=== PATIENT | female | born 1975 | race Asian ===

== ENCOUNTER 2018-08-08 18:44 | Emergency (ER) | payer OTHER ==
[2018-08-08 19:27] LABS: BILIRUBIN,URINE NEGATIVE (NEGATIVE); GLUCOSE, URINE (UA) NEGATIVE (NEGATIVE); KETONES,URINE (UA) NEGATIVE (NEGATIVE); LEUKOCYTE ESTERASE, URINE NEGATIVE (NEGATIVE); NITRITE,URINE NEGATIVE (NEGATIVE); OCCULT BLOOD,URINE SMALL (NEGATIVE); PROTEIN,URINE NEGATIVE (NEGATIVE); UROBILINOGEN,URINE 1 (NORMAL) E.U./dL (NORMAL)
[2018-08-08 19:32] LABS: CLARITY,URINE SL. CLOUDY (CLEAR); HCG UR QUAL NEGATIVE
[2018-08-08 19:35] LABS: BACTERIA,URINE Many /HPF (None Seen); SQUAMOUS EPITHELIAL CELL,UR MANY Squamous (<= Few)
--- NOTE | 2018-08-08 19:55 | ED Physician Documentation ---
PD HPI URI - Stated complaint Stated Complaint: FEVER/ SOA/BODY ACHE - Chief complaint Chief Complaint: Resp - History obtained from History obtained from: Patient - History of Present Illness Timing - onset: How many days ago (5) Timing duration: Days (5) Timing details: Abrupt onset, Still present Associated symptoms: Fever, Chills, Nasal congestion, Sore throat, Dry cough (mild) Contributing factors: Travel (from [place] 2 days ago) Similar symptoms before: Diagnosis (with the flu a year ago) Recently seen: Not recently seen Review of Systems Constitutional: reports: Fever, Chills, Myalgias, Fatigue Nose: reports: Congestion. denies: Rhinorrhea / runny nose Throat: reports: Sore throat Respiratory: reports: Cough (mild) GI: reports: Nausea. denies: Vomiting, Diarrhea Skin: denies: Rash, Lesions Neurologic: reports: Headache (mild). 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: Breast implants HEENT: Rhinoplasty - Present Medications Home Medications: Ambulatory Orders Medication Instructions Recorded Confirmed Albuterol Sulf [Ventolin Hfa 1 - 2 puffs INH Q4HR PRN #1 inhaler 08/08/18 Inhaler] Benzonatate [Tessalon Perle] 100 mg PO TID PRN #20 capsule 08/08/18 Dexamethasone [Decadron] 4 mg PO DAILY #5 tablet 08/08/18 - Allergies Allergies/Adverse Reactions: Allergies Allergy/AdvReac Type Severity Reaction Status Date / Time No Known Drug Allergies Allergy Verified 08/08/18 18:59 - Social History Does the pt smoke?: No Smoking Status: Never smoker Does the pt drink ETOH?: Yes ETOH Use: Wine, Beer Does the pt have substance abuse?: No - Immunizations Immunizations are current?: No Immunizations: Other immun not current - POLST Patient has POLST: No PD ED PE NORMAL - Vitals Vital signs reviewed: Yes - General General: Alert and oriented X 3, No acute distress, Well developed/nourished - HEENT HEENT: Ears normal, Moist mucous membranes, Pharynx benign - Neck Neck: Supple, no meningeal sign, Other (mild anterior adenopathy) - Cardiac Cardiac: RRR, No murmur - Respiratory Respiratory: Clear bilaterally - Abdomen Abdomen: Soft, Non tender - Back Back: No CVA TTP - Derm Derm: Normal color, Warm and dry - Neuro Neuro: Alert and oriented X 3, No motor deficit, Normal speech Results - Vitals Vitals: Vital Signs - 24 hr 08/08/18 08/08/18 08/08/18 18:56 20:18 20:20 Temperature 36.5 C 36.9 C Heart Rate 83 87 Respiratory 18 18 Rate Blood Pressure 175/107 H 137/94 H O2 Saturation 100 97 08/08/18 20:29 Temperature Heart Rate 71 Respiratory 18 Rate Blood Pressure O2 Saturation Oxygen O2 Source Room air - Labs Labs: Laboratory Tests 08/08/18 08/08/18 08/08/18 19:00 19:19 19:24 Urine Color YELLOW Urine Clarity SL. CLOUDY Urine pH 6.0 Ur Specific [place] >=1.030 H Urine Protein NEGATIVE Urine Glucose (UA) NEGATIVE Urine Ketones NEGATIVE Urine Occult Blood SMALL H Urine Nitrite NEGATIVE Urine Bilirubin NEGATIVE Urine Urobilinogen 1 (NORMAL) Ur Leukocyte Esterase NEGATIVE Urine RBC 11-25 H Urine WBC 0-3 Ur Squamous Epith Cells MANY Squamous H Urine Bacteria Many H Ur Microscopic Review INDICATED Urine Culture Comments NOT INDICATED Urine HCG, Qual NEGATIVE Influenza A (Rapid) Negative Influenza B (Rapid) Negative Group A Strep Rapid Negative PD MEDICAL DECISION MAKING - ED course Complexity details: reviewed results (seems flu-like but negative test and neg strep and UA. Does not sound like pneumonia. ), considered differential, d/w patient Departure - Departure Disposition: 01 Home, Self Care Clinical Impression: Flu-like symptoms Condition: Stable Record reviewed to determine appropriate education?: Yes Instructions: ED Upper Resp Infec No Abx Tx Follow-Up: [facility] [Provider Group] Prescriptions: Albuterol Sulf [Ventolin Hfa Inhaler] 1 - 2 puffs INH Q4HR PRN #1 inhaler PRN Reason: Shortness Of Air/Wheezing Benzonatate [Tessalon Perle] 100 mg PO TID PRN #20 capsule PRN Reason: Cough Dexamethasone [Decadron] 4 mg PO DAILY #5 tablet Comments: Your symptoms sound flulike (viral illness). Your influenza test itself is negative but there are other viruses act like it. Your strep test is negative. Your urine test is also clear. Your lungs sound clear and does not sound like pneumonia. Presume you will be ill not much longer since you have already been sick for 5 days. We can decrease symptoms with an albuterol inhaler for 4 times a day to help with breathing and cough. Tessalon if needed for cough. Decadron steroid anti-inflammatory will decrease some of the general symptoms. Drink lots of fluids. Tylenol or ibuprofen if needed for fevers and pains. You could have a day or 2 of work if needed for discomfort. Forms: Activity restrictions Discharge Date/Time: 08/08/18 20:56
[2018-08-08] MEDS ORDERED: ALBUTEROL NEB 2.5 MG/3 ML INH STA (20:13)
[2018-08-08] MEDS ORDERED: IBUPROFEN 600 MG TABLET PO STA (20:13)
[2018-08-08] MEDS ORDERED: BENZONATATE 100 MG CAPSULE PO STA (20:14)
[2018-08-08] MEDS ORDERED: DEXAMETHASONE 10 MG/ML VIAL PO STA (20:14)
[2018-08-08 20:18] VITALS: BP 137/94
[2018-08-08] MEDS ORDERED: CHERRY SYRUP 10 ML UDC PO ONE (20:20)
== END 2018-08-08 20:56 | disposition home or self-care (01) ==
LOC: ED 18:44
DX: J11.1 Influenza due to unidentified influenza virus with other respiratory manifestations (principal)
CPT/HCPCS: 81001; 81025; 87070; 87077; 87275; 87276; 87430; 94640; 94664; 99283; A9270; 81003; 87086

== ENCOUNTER 2021-06-10 19:48 | Emergency (ER) | payer OTHER ==
[2021-06-10 19:56] VITALS: BP 157/111
[2021-06-10] MEDS ORDERED: CHERRY SYRUP 10 ML UDC PO ONE (20:13)
[2021-06-10] MEDS ORDERED: HYDROcod/ACET 5/325 Prepack 4 PO STA (20:13)
[2021-06-10] MEDS ORDERED: DEXAMETHASONE 10 MG/ML VIAL PO STA (20:13)
[2021-06-10] MEDS ORDERED: HYDROcod/ACETAM 5/325 MG TABLET PO STA (20:13)
--- NOTE | 2021-06-10 20:15 | ED Physician Documentation ---
History of Present Illness - Stated complaint Stated Complaint: sore throat,fever - Chief complaint Chief Complaint: General - History obtained from History obtained from: Patient - Additonal information Additional information: 45-year-old woman with history of high blood pressure has been sick for 3 days of sore throat and sensation of throat swelling, severe body aches and fevers. No sick contacts. She is not vaccinated against Covid. No runny nose or cough. 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 HEENT: Rhinoplasty - Present Medications Home Medications: Ambulatory Orders Medication Instructions Recorded Confirmed Albuterol Sulf [Ventolin Hfa 1 - 2 puffs INH Q4HR PRN #1 inhaler 08/08/18 Inhaler] Benzonatate [Tessalon Perle] 100 mg PO TID PRN #20 capsule 08/08/18 dexAMETHasone [Decadron] 4 mg PO DAILY #5 tablet 08/08/18 HYDROcod/ACETAM 5/325 [[place] 5/325] 1 - 2 tab PO Q6H PRN #14 tablet 06/10/21 predniSONE [Deltasone] 60 mg PO DAILY 5 Days #15 tablet 06/10/21 - Allergies Allergies/Adverse Reactions: Allergies Allergy/AdvReac Type Severity Reaction Status Date / Time No Known Drug Allergies Allergy Verified 08/08/18 18:59 - Social History Does the pt smoke?: No Smoking Status: Never smoker Does the pt drink ETOH?: Yes Does the pt have substance abuse?: No - Immunizations Immunizations are current?: No Immunizations: Other immun not current - POLST Patient has POLST: No PD ED PE NORMAL - Vitals Vital signs reviewed: Yes - General General: Alert and oriented X 3, No acute distress - HEENT HEENT: Other (Visualized portions of the oropharynx are generally unremarkable) - Neck Neck: Supple, no meningeal sign, No bony TTP - Neuro Neuro: Alert and oriented X 3, Normal speech - Psych Psych: Normal mood, Normal affect Results - Vitals Vitals: Vital Signs - 24 hr 06/10/21 19:53 Temperature 36.5 C Heart Rate 82 Respiratory 18 Rate Blood Pressure 157/111 H O2 Saturation 100 Oxygen O2 Source Room air - Labs Labs: Laboratory Tests 06/10/21 20:18 Group A Strep Rapid Negative PD MEDICAL DECISION MAKING - ED course ED course: 45-year-old woman presents with sore throat, body aches and chills. She is strep negative. Given the current outbreak and her unvaccinated status Covid is a significant concern and advised on the need for testing and self quarantine pending results. Departure - Departure Disposition: 01 Home, Self Care Clinical Impression: Pharyngitis Qualifiers: Pharyngitis/tonsillitis etiology: unspecified etiology Qualified Code(s): J02.9 - Acute pharyngitis, unspecified Condition: Good Record reviewed to determine appropriate education?: Yes Instructions: ED Pharyngitis Viral Report Pending Prescriptions: predniSONE [Deltasone] 60 mg PO DAILY 5 Days #15 tablet HYDROcod/ACETAM 5/325 [[place] 5/325] 1 - 2 tab PO Q6H PRN #14 tablet PRN Reason: Pain Comments: Prescriptions were sent electronically to [facility] in [place]. You have a Covid test pending. You need to self quarantine until the result is done and negative. Do not leave your house. Do not get near anybody. The results should be done in 48 to 72 hours. We will call with a positive result, the fastest way to get a negative result for confirmation though is to go to the hospital website at [email or web address], click on the my [facility] tab and sign up for the patient portal. If any friends or family get sick and would like to have a Covid test done, but do not have signs or symptoms that would necessitate being hospitalized, there are multiple local options for Covid testing. [facility] keeps an updated list of testing and vaccination options at: [email or web address]. Forms: Activity restrictions
[2021-06-10 20:46] LABS: RAPID STREP SCREEN Negative (Negative)
== END 2021-06-10 21:02 | disposition home or self-care (01) ==
LOC: ED 19:48
DX: J02.9 Acute pharyngitis, unspecified (principal); Z20.822 Contact with and (suspected) exposure to COVID-19
CPT/HCPCS: 87070; 87430; 87635; 99283; A9270

== ENCOUNTER 2021-10-24 16:32 | Emergency (ER) | payer OTHER ==
--- OUTSIDE RECORDS SUMMARY | 2021-10-24 17:06 | EXTERNAL MEDICAL SUMMARY RPT | Continuity of Care Document ---
:1975 Author Organization [facility] Address [address] [place] [address] Phone Care Team Providers Name Role Phone Lia Mesa Unavailable Unavailable Lia Mesa Unavailable Unavailable Allergies No information. Encounters No information. Medications date description facility 20211005 [facility]cl[facility] 1000 [facility] Metronidazole 0.0075 MG/MG Vaginal Gel [facility] 20210918 Hydroxyzine Hydrochloride 10 MG Oral Ta blet [facility] 20210918 Triamcinolone Acetonide 0.25 MG/ML Topi nichole Cream [facility] Problems date description facility 20211001 Other specified noninflammatory disorde rs of vagina [facility] [id number] Encounter for screening for malignant n eoplasm of [facility] cervix [id number] Encounter for screening for human papil lomavirus (HPV) [facility] [id number] Major depressive disorder, single episo de, unspecified [facility] [id number] Anxiety disorder, unspecified [facility] Procedures date description facility 20211005 General Physician [facility] 20211001 General Physician [facility] [id number] General Physician [facility] [id number] General Physician [facility] 20210806 Finding [facility] 20210806 Diagnosis [facility] Results No information. Vital Signs date measurement value source 20210918 weight_standard 64.47 lb 20210918 weight_metric 29.24 kg 20210918 temperature_standard 98.3 F 20210918 temperature_metric 36.83 C 20210918 respiration_rate 20 /min 20210918 height_standard 65 in 20210918 height_metric 165.1 cm 20210918 heart_rate 109 /min 20210918 BP_systolic 152 mm[Hg] 20210918 BP_diastolic 100 mm[Hg] 20210918 BMI 23.6 kg/m2 20211001 weight_standard 67.3 lb 20211001 weight_metric 30.53 kg 20211001 temperature_standard 98.4 F 20211001 temperature_metric 36.89 C 20211001 respiration_rate 20 /min 20211001 height_standard 65 in 20211001 height_metric 165.1 cm 20211001 heart_rate 108 /min 20211001 BP_systolic 142 mm[Hg] 20211001 BP_diastolic 98 mm[Hg] 20211001 BMI 24.7 kg/m2
[2021-10-24 17:35] LABS: BASOPHILS # (AUTO) 0.1 10^3/uL (0.0-0.1); BASOPHILS % (AUTO) 0.9 %; EOSINOPHILS # (AUTO) 0.3 10^3/uL (0.0-0.7); EOSINOPHILS % (AUTO) 5.5 %; HCT - HEMATOCRIT 41.1 % (37.0-47.0); HGB - HEMOGLOBIN 13.6 g/dL (12.0-16.0); LYMPHOCYTES # (AUTO) 1.1 10^3/uL (1.5-3.5); LYMPHOCYTES % (AUTO) 20.9 %; MEAN CORPUSCULAR HEMOGLOBIN 29.8 pg (27.0-31.0); MEAN CORPUSCULAR HGB CONC 33.1 g/dL (32.0-36.0); MEAN CORPUSCULAR VOLUME 90.1 fL (81.0-99.0); MEAN PLATELET VOLUME 10.1 fL (7.9-10.8); MONOCYTES # (AUTO) 0.4 10^3/uL (0.0-1.0); MONOCYTES % (AUTO) 7.9 %; NEUTROPHILS # (AUTO) 3.4 10^3/uL (1.5-6.6); NEUTROPHILS % (AUTO) 64.4 %; PLT - PLATELET COUNT 201 10^3/uL (130-450); RED BLOOD COUNT 4.56 10^6/uL (4.20-5.40); RED CELL DISTRIBUTION WIDTH 13.5 % (12.0-15.0); WHITE BLOOD COUNT 5.3 x10^3/uL (4.8-10.8)
[2021-10-24 17:47] LABS: ALBUMIN 3.9 g/dL (3.2-5.5); ALBUMIN/GLOBULIN RATIO 1.3 (1.0-2.2); BILIRUBIN,TOTAL 0.6 mg/dL (0.2-1.0); CALCIUM 9.3 mg/dL (8.5-10.3); CREATININE 0.8 mg/dL (0.4-1.0); POTASSIUM 3.6 mmol/L (3.5-5.0)
--- NOTE | 2021-10-24 19:38 | XRAY Report ---
PROCEDURE: Chest 1 View X-Ray INDICATIONS: chest pain TECHNIQUE: One view of the chest was acquired. COMPARISON: None. FINDINGS: Surgical changes and devices: None. Lungs and pleura: No pleural effusions or pneumothorax. Lungs are clear. Mediastinum: Mediastinal contours appear normal. Heart size is normal. Bones and chest wall: No suspicious bony lesions. Overlying soft tissues appear unremarkable. IMPRESSION: No acute cardiopulmonary disease. Reviewed by: Dharmesh Ramos MD on 10/24/2021 7:37 PM PDT Approved by: Dharmesh Ramos MD on 10/24/2021 7:37 PM PDT Station ID: [id number]
--- NOTE | 2021-10-24 19:43 | ED Physician Documentation ---
History of Present Illness - Stated complaint Stated Complaint: UPPER BODY PX; LT SHOULDER PX - Chief complaint Chief Complaint: General - Additonal information Additional information: 46-year-old female presents emergency department for evaluation of 10 days of upper body pain. She describes a sharp pain in her left shoulder as well as her skin feeling like it is on fire. No rash. She sometimes wakes up in the morning and has swelling in her fingers that resolves through the day. No history of similar in the past. She did have a fever a few days ago but none since. No abdominal pain chest pain shortness of air nausea or vomiting. She has taken Advil aspirin and Tylenol without relief. Review of Systems Constitutional: reports: Myalgias, Fatigue. 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 HEENT: None Psych: None Musculoskeletal: None Derm: None - Past Surgical History Past Surgical History: 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: Breast 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 HEENT: Rhinoplasty - Present Medications Home Medications: Ambulatory Orders Medication Instructions Recorded Confirmed Losartan Potassium 25 mg PO DAILY 10/24/21 10/24/21 - Allergies Allergies/Adverse Reactions: Allergies Allergy/AdvReac Type Severity Reaction Status Date / Time No Known Drug Allergies Allergy Verified 10/24/21 16:51 - Social History Does the pt smoke?: No Smoking Status: Never smoker Does the pt drink ETOH?: Yes Does the pt have substance abuse?: No - Immunizations Immunizations are current?: No Immunizations: Other immun not current - POLST Patient has POLST: No PD ED PE NORMAL - General General: Alert and oriented X 3, No acute distress, Well developed/nourished - HEENT HEENT: Atraumatic, Moist mucous membranes, Pharynx benign - Neck Neck: Supple, no meningeal sign, No adenopathy - Cardiac Cardiac: RRR, No murmur, No gallop - Respiratory Respiratory: No respiratory distress - Abdomen Abdomen: Normal bowel sounds, Soft, Non tender, Non distended - Female Female : Deferred, Pt declined - Back Back: No CVA TTP, No spinal TTP - Derm Derm: Normal color, Warm and dry Results - Vitals Vitals: Vital Signs - 24 hr 10/24/21 10/24/21 16:52 18:55 Temperature 36.9 C Heart Rate 104 H 90 Respiratory 17 18 Rate Blood Pressure 179/108 H 141/103 H O2 Saturation 98 99 Oxygen O2 Source Room air - Labs Labs: Laboratory Tests 10/24/21 10/24/21 10/24/21 17:27 17:27 17:27 WBC 5.3 RBC 4.56 Hgb 13.6 Hct 41.1 MCV 90.1 MCH 29.8 MCHC 33.1 RDW 13.5 Plt Count 201 MPV 10.1 Neut # (Auto) 3.4 Lymph # (Auto) 1.1 L [place] # (Auto) 0.4 Eos # (Auto) 0.3 Baso # (Auto) 0.1 Absolute Nucleated RBC 0.00 Nucleated RBC % 0.0 Sodium 138 Potassium 3.6 Chloride 102 Carbon Dioxide 28 Anion Gap 8.0 BUN 8 Creatinine 0.8 Estimated GFR (MDRD) 77 L Glucose 120 H Calcium 9.3 Total Bilirubin 0.6 AST 54 H ALT 73 H Alkaline Phosphatase 46 B-Natriuretic Peptide 12 Total Protein 7.0 Albumin 3.9 Globulin 3.1 Albumin/Globulin Ratio 1.3 Lipase 34 - Rads (name of study) cxr Radiology: EMP read indepedently (No acute cardiopulmonary process) PD MEDICAL DECISION MAKING - ED course Complexity details: reviewed results, re-evaluated patient, considered differential, d/w patient ED course: 46-year-old female presents emergency department for evaluation of 10 days upper body pain. She describes waking up in the morning and sometimes having swelling in her fingers. She also feels like her skin is on fire though there is no rash. She feels aches in her muscles. She has no history of similar in the past. Screening labs are unremarkable. No leukocytosis chest x-ray was negative. Her vital signs here are normal without fever. We discussed that because she had a fever at the onset of symptoms this may represent a viral etiology that is likely resolve over the next few days. However she is concerned that she could have fibromyalgia which she does remain in the differential. However no emergent treatment is indicated today. She is advised take ibuprofen 600 mg with food 2-3 times a day and [place] May benefit from outpatient rheumatologic testing though none indicated today. Emergent return precautions otherwise discussed Departure - Departure Disposition: 01 Home, Self Care Clinical Impression: Myalgia Condition: Stable Record reviewed to determine appropriate education?: Yes Instructions: Fibromyalgia Comments: Laisha walls were seen today in the emergency department for 10 days of upper body pain skin burning sensation and pain behind her left shoulder. Your chest x-ray screening labs are all essentially normal. You are not having a heart attack or in heart failure. It is possible that you had a viral illness at the beginning of all of this that is because generalized body aches and if this is the case it will resolve with time. However you could have a condition called fibromyalgia. In general I would like you to take ibuprofen 600 mg with food 2-3 times a day. I do recommend very close follow-up with your primary care provider. They may want to do a rheumatologic work-up. If at any point you find that your symptoms worsen, you have fainting episodes or severe chest pain or shortness of air then please return immediately to the ER for second evaluation
[2021-10-24 19:50] VITALS: BP 152/93
== END 2021-10-24 19:57 | disposition home or self-care (01) ==
LOC: ED 16:32
DX: M79.18 Myalgia, other site (principal); M25.512 Pain in left shoulder; I10 Essential (primary) hypertension
CPT/HCPCS: 36415; 80053; 83690; 83880; 85025; 99282; 99284

== ENCOUNTER 2023-11-16 17:38 | Emergency (ER) | payer OTHER ==
--- NOTE | 2023-11-16 18:02 | ED Physician Documentation ---
History of Present Illness - Stated complaint Stated Complaint: PALPITATIONS - Chief complaint Chief Complaint: Cardiac - History obtained from History obtained from: Patient - History of Present Illness Timing: Today Pain level max: 0 Pain level now: 0 - Additonal information Additional information: Patient is a 48-year-old female who complains of palpitations for the past 1 week. She states that these come and go. Has had these in the past but not for several years. She states that no cause was found. She states that she is on losartan for hypertension at home. She drinks coffee in the morning but otherwise no caffeine. Denies any stimulant use. No fevers. No chills. No cough. No congestion. No chest pain, shortness of breath, nausea, vomiting. No recent illnesses. She states that the palpitations feel like her heart is beating quickly. Has not taken her pulse rate. She states that the palpitations can happen for several hours, usually 1-2 heartbeats at a time. 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 HEENT: Rhinoplasty - Present Medications Home Medications: Ambulatory Orders Medication Instructions Recorded Confirmed Losartan Potassium 50 mg PO DAILY 10/24/21 11/16/23 Metoprolol Succinate [Toprol Xl] 25 mg PO DAILY #30 tablet 11/16/23 - Allergies Allergies/Adverse Reactions: Allergies Allergy/AdvReac Type Severity Reaction Status Date / Time No Known Drug Allergies Allergy Verified 11/16/23 17:41 - Social History Does the pt smoke?: No Smoking Status: Never smoker Does the pt drink ETOH?: No Does the pt have substance abuse?: No - Immunizations Immunizations are current?: No Immunizations: Other immun not current - POLST Patient has POLST: No PD ED PE NORMAL - Vitals Vital signs reviewed: Yes - General General: Alert and oriented X 3, No acute distress - HEENT HEENT: Moist mucous membranes - Neck Neck: Supple, no meningeal sign, No JVD, No bruit - Cardiac Cardiac: RRR, No murmur, Strong equal pulses - Respiratory Respiratory: No respiratory distress, Clear bilaterally - Abdomen Abdomen: Soft, Non tender, Non distended - Derm Derm: Warm and dry - Extremities Extremities: No edema, No calf tenderness / cord - Neuro Neuro: Alert and oriented X 3 - Psych Psych: Normal mood, Normal affect Results - Vitals Vitals: Vital Signs - 24 hr 11/16/23 11/16/23 11/16/23 17:41 17:46 19:39 Temperature 36.5 C 36.5 C 36.5 C Heart Rate 88 88 84 Respiratory 18 18 18 Rate Blood Pressure 174/91 H 174/91 H 144/96 H O2 Saturation 100 100 98 Oxygen O2 Source Room air - EKG (time done) 1749 EKG releavant findings:: EKG personally interpreted by author of this note. Relevant findings are: Rate: Rate (enter#) (93) Rhythm: NSR, Other (PAC) [place]: Normal Intervals: Normal [place] QRS: Normal Ischemia: Normal ST segments - Labs Labs: Laboratory Tests 11/16/23 11/16/23 11/16/23 18:04 18:04 18:04 WBC 6.4 RBC 4.93 Hgb 14.2 Hct 44.3 MCV 89.9 MCH 28.8 MCHC 32.1 RDW 12.8 Plt Count 242 MPV 10.5 Neut # (Auto) 3.8 Lymph # (Auto) 1.8 [place] # (Auto) 0.4 Eos # (Auto) 0.2 Baso # (Auto) 0.1 Absolute Nucleated RBC 0.00 Nucleated RBC % 0.0 Sodium 140 Potassium 3.5 Chloride 103 Carbon Dioxide 31 Anion Gap 6.0 BUN 11 Creatinine 0.8 Estimated GFR (MDRD) 76 L Glucose 87 Calcium 9.9 Phosphorus 4.1 Magnesium 2.1 Total Bilirubin 0.4 AST 18 ALT 23 Alkaline Phosphatase 65 Troponin I High Sens < 2.3 L Total Protein 7.6 Albumin 4.6 Globulin 3.0 Albumin/Globulin Ratio 1.5 Lipase 27 TSH 1.22 Free T4 Direct 0.94 - Rads (name of study) cxr Relevant Findings:: Final report received, See rad report PD Medical Decision Making - ED course Complexity details: reviewed results, re-evaluated patient, considered differential, d/w patient ED course: Patient with what appears to be premature atrial contractions on her EKG and telemetry these coincide with her sensation of palpitations. No significant lab abnormalities. No acute findings on chest x-ray. Patient requested a trial of beta-zoya, 25 mg Toprol-XL was given. Symptoms seem to resolved. She would like to try this at home. Recommend that she follow-up closely with her doctor for further investigation including potentially echocardiogram and cardiac monitoring. Patient is otherwise well-appearing, nontoxic. No evidence of ACS. Patient counseled regarding signs and symptoms for which I believe and urgent re-evaluation would be necessary. Patient with good understanding of and agreement to plan and is comfortable going home at this time This document was made in part using voice recognition software. While efforts are made to proofread this document, sound alike and grammatical errors may o ccur. Departure - Departure Disposition: Home, Self Care Clinical Impression: Premature atrial contractions, Palpitations Condition: Good Instructions: ED Palpitations Follow-Up: your,doctor in 1 week [Other] Prescriptions: Metoprolol Succinate [Toprol Xl] 25 mg PO DAILY #30 tablet Comments: We will start you on a low-dose of metoprolol, this will help with the palpitations. Please follow-up with your doctor for further care. Your laboratory testing, EKG and chest x-ray do not show any acute abnormalities today. You appear to have premature atrial contractions on the cardiac exercise specialist and her EKG, these coincide with your palpitations. Your doctor may want to place you on a heart monitor for further testing. Your prescriptions were sent to [facility] in [place]. Forms: PCP List Discharge Date/Time: 11/16/23 19:41
[2023-11-16 18:15] LABS: BASOPHILS # (AUTO) 0.1 10^3/uL (0.0-0.1); BASOPHILS % (AUTO) 0.9 %; EOSINOPHILS # (AUTO) 0.2 10^3/uL (0.0-0.7); EOSINOPHILS % (AUTO) 3.3 %; HCT - HEMATOCRIT 44.3 % (37.0-47.0); HGB - HEMOGLOBIN 14.2 g/dL (12.0-16.0); LYMPHOCYTES # (AUTO) 1.8 10^3/uL (1.5-3.5); LYMPHOCYTES % (AUTO) 28.8 %; MEAN CORPUSCULAR HEMOGLOBIN 28.8 pg (27.0-31.0); MEAN CORPUSCULAR HGB CONC 32.1 g/dL (32.0-36.0); MEAN CORPUSCULAR VOLUME 89.9 fL (81.0-99.0); MEAN PLATELET VOLUME 10.5 fL (7.9-10.8); MONOCYTES # (AUTO) 0.4 10^3/uL (0.0-1.0); MONOCYTES % (AUTO) 6.4 %; NEUTROPHILS # (AUTO) 3.8 10^3/uL (1.5-6.6); NEUTROPHILS % (AUTO) 60.3 %; PLT - PLATELET COUNT 242 10^3/uL (130-450); RED BLOOD COUNT 4.93 10^6/uL (4.20-5.40); RED CELL DISTRIBUTION WIDTH 12.8 % (12.0-15.0); WHITE BLOOD COUNT 6.4 x10^3/uL (4.8-10.8)
[2023-11-16 18:24] LABS: MAGNESIUM 2.1 mg/dL (1.7-2.3)
--- NOTE | 2023-11-16 18:25 | XRAY Report ---
PROCEDURE: Chest 1V INDICATIONS: Chest Pain TECHNIQUE: One view of the chest was acquired. COMPARISON: None. FINDINGS: Surgical changes and devices: None. Lungs and pleura: No pleural effusions or pneumothorax. Lungs are clear. Mediastinum: Mediastinal contours appear normal. Heart size is normal. Bones and chest wall: No suspicious bony lesions. Overlying soft tissues appear unremarkable. IMPRESSION: No acute cardiopulmonary process. Reviewed by: Cuong Simon MD on 11/16/2023 5:24 PM AKDT Approved by: Cuong Simon MD on 11/16/2023 5:24 PM AKDT Station ID: [id number]
[2023-11-16 18:30] LABS: ALBUMIN 4.6 g/dL (3.2-5.5); ALBUMIN/GLOBULIN RATIO 1.5 (1.0-2.2); ALKALINE PHOSPHATASE 65 IU/L (42-121); ALT ALANINE AMINOTRANSFERASE 23 IU/L (10-60); AST ASPARTATE AMINOTRANSFERASE 18 IU/L (10-42); BILIRUBIN,TOTAL 0.4 mg/dL (0.2-1.0); BUN - BLOOD UREA NITROGEN 11 mg/dL (6-20); CALCIUM 9.9 mg/dL (8.5-10.3); CARBON DIOXIDE - CO2 31 mmol/L (21-32); CHLORIDE 103 mmol/L (101-111); CREATININE 0.8 mg/dL (0.6-1.3); GFR - MDRD 76 (>89); GLUCOSE 87 mg/dL (74-104); LIPASE 27 U/L (11-82); PHOSPHORUS 4.1 mg/dL (2.5-5.0); POTASSIUM 3.5 mmol/L (3.5-4.5); SODIUM 140 mmol/L (135-145); TOTAL PROTEIN 7.6 g/dL (6.4-8.9)
[2023-11-16] MEDS: METOPROLOL SUCCINATE 25 MG TABLET PO STA (18:32)
[2023-11-16 18:35] LABS: TROPONIN I HIGH SENSITIVITY < 2.3 ng/L (2.3-14.8)
[2023-11-16 18:50] LABS: THYROID STIMULATING HORMONE 1.22 uIU/mL (0.34-5.60)
[2023-11-16 19:45] VITALS: BP 144/96; O2SAT 98
== END 2023-11-16 19:41 | disposition home or self-care (01) ==
LOC: ED 17:38
DX: I49.1 Atrial premature depolarization (principal); I10 Essential (primary) hypertension
CPT/HCPCS: 36415; 71045; 80053; 83690; 83735; 84100; 84439; 84443; 84484; 85025; 93005; 99284; A9270